=== PATIENT | female | born 1995 | race Caucasian/White ===

== ENCOUNTER 2016-09-01 23:15 | Emergency (ER) | payer OTHER ==
[~2016-09-01] VITALS: Ht 162.6 cm; Wt 54.8 kg
[2016-09-01 23:24] VITALS: TEMP 37.4; Ht 162.6 cm; Wt 54.8 kg
[2016-09-01] MEDS ORDERED: MELATAB2 PO (23:59)
[2016-09-02] MEDS ORDERED: XYLOCAINE 1%/SOD BICARB 20 ML VIAL INFIL ONE
[2016-09-02] MEDS ORDERED: LIDOCAINE HCL 1% 20 ML VIAL ONE (00:01)
[2016-09-02 00:55] VITALS: BP 116/74; PULSE 71; O2SAT 100
--- NOTE | 2016-09-02 05:59 | EMERGENCY ROOM VISIT NOTE ---
ED Visit Note First contact with patient: 23:27 CHIEF COMPLAINT: Right hand laceration HISTORY OF PRESENT ILLNESS: This 20-year-old patient presents to the emergency department with friends after cutting the right hand on a piece of glass while at work. This is a work-related injury. The bleeding has not stopped. Denies weakness or numbness of the extremity. patient has full range of motion of the extremity The patient rates the pain as mild and 2/10. The patient denies any other injuries. The patient's tetanus shot is up to date. REVIEW OF SYSTEMS: A 6 system review of systems was completed with positives and pertinent negatives listed in the HPI. ALLERGIES: Pineapple MEDICATIONS: Reviewed PMH: Asthma SOCIAL HISTORY: No drug use PHYSICAL EXAM: Vital Signs: Reviewed Nurse's notes, vital signs stable. GENERAL : Pleasant female, in no acute distress, well developed, well nourished. SKIN: There is a 3 cm long laceration on the right hand between the first and second . The edges gape apart with traction. There is no foreign material in the wound and it looks clean. There is bleeding. No deep structures such as tendons, bones, or significant blood vessels are seen in the base of the wound. Extension and flexion of the extremity is full and strong. Full range of motion of the extremity. Capillary refill less than 2 seconds. Normal sensation to light and sharp touch. EMERGENCY DEPARTMENT COURSE: I examined the patient. Using sterile technique the wound was cleansed with Betadine. 2 ml of 1% buffered lidocaine was used to anesthetize the patient. The area was sterilely draped. Once the patient was anesthetized, the wound was copiously irrigated under pressure with sterile saline. The wound was explored and there were no deep structures injured. The laceration was repaired using 5 simple interrupted 5-0 nylon sutures. The patient tolerated the procedure well. Hemostasis was achieved. The area was cleaned with sterile saline and dressed with bacitracin ointment and bandage. The patient was discharged home in good condition. Differential diagnosis includes laceration, tendon injury, vascular injury and other etiologies were considered. DIAGNOSIS: Right hand laceration DISCHARGE INSTRUCTIONS & TREATMENT: Keep wound clean and dry. Do not allow any crusting or dried blood to accumulate on sutures. If this occurs, use a 1:1 solution of hydrogen peroxide/water on a Q-tip to clean the wound. Use an antibiotic ointment for 3-4 days, then let wound dry. Suture removal in 10-12 days. Return sooner for any signs of infection (increasing redness, swelling, drainage). Ice and elevate for swelling and pain. Ibuprofen 600 mg and Tylenol 1000 mg every 6 hrs for pain. Keep covered when in sun until sutures removed then SPF 50 or higher for one year. Vitamin E oil if desired two weeks after suture removal for reduction of scar. Current/Historical Medications Scheduled PRN Melatonin (Melatonin Maximum Strengt), 1 TAB PO HS PRN for Sleep Allergies Coded Allergies: Pineapple (Verified Allergy, Unknown, ANAPHYLAXIS, 09/01/16) Vital Signs Date Time Temp Pulse Resp B/P Pulse Ox O2 Delivery O2 Flow Rate FiO2 09/02/16 00:55 71 18 116/74 100 09/01/16 23:24 37.4 98 18 124/76 99 Room Air Departure Information Impression Primary Impression: Work related injury Additional Impression: Laceration of right hand Dispostion Home / Self-Care Condition GOOD Forms WORK / SCHOOL INSTRUCTIONS, HOME CARE DOCUMENTATION FORM, IMPORTANT VISIT INFORMATION Patient Instructions [facility], ED Laceration All Additional Instructions Keep wound clean and dry. Do not allow any crusting or dried blood to accumulate on sutures. If this occurs, use a 1:1 solution of hydrogen peroxide/ water on a Q-tip to clean the wound. Use an antibiotic ointment for 3-4 days, then let wound dry. Suture removal in 10-12 days. Return sooner for any signs of infection (increasing redness, swelling, drainage). Ice and elevate for swelling and pain. Ibuprofen 600 mg and Tylenol 1000 mg every 6 hrs for pain. Keep covered when in sun until sutures removed then SPF 50 or higher for one year. Vitamin E oil if desired two weeks after suture removal for reduction of scar Problem Qualifiers
== END 2016-09-02 00:55 | disposition home or self-care (01) ==
LOC: C.EDB 23:16 → C.EDA 09-02 00:55
DX: S61.411A Laceration without foreign body of right hand, initial encounter (principal); W25.XXXA Contact with sharp glass, initial encounter; Y99.0 Civilian activity done for income or pay

== ENCOUNTER → 2016-11-08 | Outpatient (CLI) | payer OTHER ==
[~2016-11-08] MED LIST: MELATAB2 PO
== END | disposition home or self-care (01) ==
LOC: C.PAPS 13:37
PROVIDERS: ATTEND Obstetrics & Gynecology
DX: Z01.419 Encounter for gynecological examination (general) (routine) without abnormal findings (principal)

== ENCOUNTER → 2016-11-08 | Outpatient (CLI) | payer OTHER ==
[2016-11-10 20:48] LABS: CHLAMYDIA TRACH RNA*** NOT DETECTED (NOT DETECTED); GC (NEIS GONORRHOEAE)RNA** NOT DETECTED (NOT DETECTED)
== END | disposition home or self-care (01) ==
LOC: C.LABSPEC 13:20
PROVIDERS: ATTEND Obstetrics & Gynecology
DX: Z11.3 Encounter for screening for infections with a predominantly sexual mode of transmission (principal)